=== PATIENT | male | born 1995 | race Caucasian/White ===

== ENCOUNTER 2024-06-13 21:20 | Emergency (ER) | payer MEDICAID ==
[~2024-06-13] VITALS: Ht 177.8 cm; Wt 77.1 kg
[2024-06-13 21:26] VITALS: BP_SYST 139; PULSE 102; RESP 20; TEMP 98.6; O2SAT 99
[2024-06-13 21:38] VITALS: BP_SYST 139; PULSE 102; RESP 20; TEMP 98.6; O2SAT 99
[2024-06-13] MEDS ORDERED: TRAM50TA2 PO (22:17)
== END 2024-06-13 22:41 | disposition home or self-care (01) ==
LOC: SED 21:20
DX: K08.89 Other specified disorders of teeth and supporting structures (principal); K02.9 Dental caries, unspecified; Z79.899 Other long term (current) drug therapy
CPT/HCPCS: 99283